=== PATIENT | female | born 2000 | race Two or more races ===

== ENCOUNTER 2023-12-26 15:09 | Outpatient (AMB) | payer OTHER, SELFPAY ==
--- NOTE | 2023-12-26 15:11 | AM.OFFWIN_ITS ---
Intake Vital Signs 12/26/23 15:12 Height 5 ft 3 in Weight 110 lb BMI 19.5 BP 108/62 Blood Pressure Location Lt brachial Position Sitting Pulse 84 Pulse Source Pulse Oximeter Temp 99.2 F Temp Source Oral Pulse Oximetry (%) 99 Oxygen Delivery Method Room Air Intake Visit Reasons: [employer] Titers/Work/ok per provider Intake Note: pt here for bloodwork titer orders for work Patient Tobacco Use Status: Never used Tobacco Allergies No Known Allergies Allergy (Verified 12/26/23 15:17) Do you need a note to return to daycare/school/sports/work: No HPI HPI Comments History of Present Illness Details 23 y/o female patient [facility] Vaccination Titers for school. Pt is enrolled in [employer] school and is required to obtain Immunization titers. Pt had a Physical examination at [facility] Urgent care but they could not obtain lab work there due to Insurance ([facility] does not accept the insurance she has). Pt is healthy and denies any chronic medical problems. PFSH Social History Patient Tobacco Use Status: Never used Tobacco Review of Systems Const All systems reviewed & are unremarkable except as noted in HPI and below Physical Exam Vital Signs: Last Vital Signs Temp 99.2 F 12/26/23 15:12 Pulse 84 12/26/23 15:12 BP 108/62 12/26/23 15:12 Pulse Ox 99 12/26/23 15:12 Oxygen Delivery Method Room Air 12/26/23 15:12 BMI result Body Mass Index 19.5 Const General: comfortable Nutritional Appearance: underweight Orientation/consciousness: patient oriented x3 Neuro General: patient oriented x3, gait normal and moves all extremities Psych Speech and movement: Normal speech and movement present Assessment & Plan Assessment & Plan (1) Immunization due: Code(s): Z23 - Encounter for immunization Plan: - Titers ordered -Provider has Paperwork, to be signed after results obtained. Orders: Orders MMR IgG Measles Mumps Rubella Today Z23 - Encounter for immunization Varicella IgG Antibody Today Z23 - Encounter for immunization Hepatitis BE Antibody Today Z23 - Encounter for immunization Coding Level of Care Code New Pt Level 3 (66498) Diagnoses Immunization due Z23 Time Spent (min) 15
[2023-12-26 15:12] VITALS: BP 108/62; PULSE 84; TEMP 37.3; O2SAT 99; BMI 19.5
== END 2023-12-26 15:33 | disposition home or self-care (01) ==
PROVIDERS: Visit Provider Nurse Practitioner Family
DX: Z23 Encounter for immunization (principal)
CPT/HCPCS: 99203

== ENCOUNTER 2023-12-26 15:52 | Outpatient (REF) | payer OTHER, SELFPAY ==
[2023-12-27 09:38] LABS: Mumps Virus IgG Antibody >300.00 AU/mL
[2023-12-27 12:08] LABS: Varicella IgG Antibody <135.00 index
[2023-12-28 01:09] LABS: Hepatitis BE Antibody NON-REACTIVE (NON-REACTIVE)
== END 2023-12-26 15:53 | disposition home or self-care (01) ==
LOC: HO.LAB 15:52
PROVIDERS: Visit Provider Nurse Practitioner Family
DX: Z23 Encounter for immunization (principal)
CPT/HCPCS: 36415; 86707; 86735; 86762; 86765; 86787